=== PATIENT | female | born 1975 | race Caucasian/White ===

== ENCOUNTER 2021-11-22 20:24 | Emergency (ER) | payer MEDICAID ==
[~2021-11-22] VITALS: Ht 165.1 cm; Wt 86.2 kg
[2021-11-22 20:33] VITALS: BP 103/57
--- NOTE | 2021-11-22 20:37 | NUR ---
patient w/c assisted back to the lobby
--- NOTE | 2021-11-22 22:18 | NUR ---
patient in chair b for splint
--- NOTE | 2021-11-22 22:20 | NUR ---
ermd examining patient
--- NOTE | 2021-11-22 22:40 | NUR ---
pt w/c assisted back out in lobby
[2021-11-22] MEDS ORDERED: IBUP-2213 PO (22:46)
[2021-11-22] MEDS ORDERED: ACET-10509 PO (22:46)
--- NOTE | 2021-11-22 23:17 | NUR ---
PT LEFT WITHOUT D/C PAPERS
--- NOTE | 2021-11-23 | NUR ---
Darian carias in [facility] - 11/23/21 at 0001 by CY PT LEFT WITHOUT DISCHARGE PAPERS.
== END 2021-11-22 23:17 | disposition home or self-care (01) ==
LOC: MED 20:24
DX: S82.61XA Displaced fracture of lateral malleolus of right fibula, initial encounter for closed fracture (principal); Z79.899 Other long term (current) drug therapy; X50.1XXA Overexertion from prolonged static or awkward postures, initial encounter; Y93.01 Activity, walking, marching and hiking; Y92.89 Other specified places as the place of occurrence of the external cause; Y99.8 Other external cause status
CPT/HCPCS: 73610; 99283

== ENCOUNTER 2023-04-27 09:48 | Emergency (ER) | payer MEDICAID ==
[~2023-04-27] VITALS: Ht 162.6 cm; Wt 72.6 kg
[~2023-04-27 09:48] MED LIST: ACET-10509 PO; IBUP-2213 PO
[2023-04-27 09:55] VITALS: BP 137/70; PULSE 62; RESP 18; TEMP 98; O2SAT 99
[2023-04-27] MEDS ORDERED: KETOROLAC 30 MG/ML VIAL IM ONE (10:35)
[2023-04-27] MEDS ORDERED: METOCLOPRAMIDE 10 MG/2 ML INJ VIAL IM ONE (10:35)
--- NOTE | 2023-04-27 10:51 | NUR ---
PT AMBULATED TO BED 2 W/STEADT GAIT.
--- NOTE | 2023-04-27 10:55 | NUR ---
47YO F PRESENTS TRAORE X 4DAYS W/NAUSEA. PT DENIES HX OF MIGRAINE, VOMITING, URINARY SYMPTOMS, FLU SYMTOMS, BODY ACHES, INJURY. NAD, SAFETY MAINTAINED. CALL LIGHT IN REACH. HX: DENIES NKA
[2023-04-27] MEDS ORDERED: METO-485 PO (11:40)
[2023-04-27] MEDS ORDERED: NAPR-1704 PO (11:40)
[2023-04-27 11:57] VITALS: PULSE 74; RESP 17; O2SAT 98
--- NOTE | 2023-04-27 11:58 | NUR ---
Patient discharged with v/s stable. Written and verbal after care instructions given and explained. Patient alert, oriented and verbalized understanding of instructions. Ambulatory with steady gait. All questions addressed prior to discharge. ID band removed. Patient advised to follow up with PMD. Rx of reglan, naproxen given. Patient educated on indication of medication including possible reaction and side effects. Opportunity to ask questions provided and answered.
== END 2023-04-27 11:58 | disposition home or self-care (01) ==
LOC: MED 09:48
DX: R51.9 Headache, unspecified (principal); Z79.899 Other long term (current) drug therapy
CPT/HCPCS: 96372; 99284; J1885; J2765